=== PATIENT | female | born 1990 | race Hispanic/Latino ===

== ENCOUNTER 2021-07-20 19:40 | Emergency (ER) | payer SELFPAY ==
[~2021-07-20] VITALS: Ht 167.6 cm; Wt 75.0 kg
[2021-07-20 19:52] VITALS: BP 97/75
[2021-07-20 20:01] VITALS: BP 115/52
[2021-07-20 20:08] LABS: HEMATOCRIT 34.1 % (37.0-47.0); HEMOGLOBIN 10.9 g/dl (12.0-16.0); IMMATURE GRANULOCYTES 0.2 % (0.0-5.0); MEAN CORPUSCULAR HGB 27.2 pG CALC (26.0-32.0); NEUT# 6.26 thou/uL (2.00-7.15); RED BLOOD COUNT 4.01 mill/uL (4.20-5.60); RED CELL DISTRI WIDTH 14.1 % (11.5-15.5)
[2021-07-20 20:14] LABS: URINE BILIRUBIN - DIPSTICK NEGATIVE (NEGATIVE); URINE BLOOD DIPSTICK LARGE (NEGATIVE); URINE COLOR BLOODY; URINE GLUCOSE - DIPSTICK NEGATIVE (NEGATIVE); URINE KETONE NEGATIVE (NEGATIVE); URINE LEUK ESTERASE TRACE (NEGATIVE); URINE NITRITE - DIPSTICK NEGATIVE (Negative); URINE PH 7.5 (4.5-8.0); URINE PROTEIN - DIPSTICK >=300 mg/dL (NEG-TRACE); URINE SPECIFIC GRAVITY 1.025; URINE UROBILINOGEN - DIPSTICK 0.2 E.U./dL (0.2)
[2021-07-20 20:15] LABS: URINE RBC TNTC RBC/hpf (0-5); URINE WBC 0-2 WBC/hpf (0-5)
[2021-07-20 20:16] LABS: ALBUMIN 4.1 g/dL (3.2-5.0); ALKALINE PHOSPHATASE 77 u/l (38-126); ANION GAP 11 (6-22 (CALC)); BILIRUBIN, TOTAL 0.3 mg/dL (0.0-1.4); BUN 10 mg/dL (7-17); BUN/CREATININE RATIO 14 (12-20 (CALC)); CARBON DIOXIDE 24 mmol/l (22-30); CHLORIDE 107 mmol/l (95-108); CREATININE 0.7 mg/dL (0.5-1.0); GFR FOR AFR.AMER. > 60 ML/MIN (>=60 (CALC)); GFR OTHER RACES > 60 ML/MIN (>=60 (CALC)); POTASSIUM 3.4 mmol/l (3.5-5.1); SGOT/AST 21 u/l (14-36); SODIUM 138 mmol/l (137-146); TOTAL PROTEIN 7.1 g/dL (6.3-8.2)
[2021-07-20 21:04] VITALS: BP 116/67
[2021-07-20 21:35] VITALS: BP 116/67
== END 2021-07-20 21:35 | disposition short-term general hospital (02) | DRG 833 ==
LOC: ED 19:40
PROVIDERS: Emergency Medicine
DX: O46.91 Antepartum hemorrhage, unspecified, first trimester (principal)